=== PATIENT | female | born 1995 | race African-American/Black ===

== ENCOUNTER 2016-07-21 23:25 | Emergency (ER) | payer SELFPAY ==
[~2016-07-21] VITALS: Ht 172.7 cm; Wt 65.0 kg
[~2016-07-21 23:25] MED LIST: VIGA0.5D EACH EYE
[2016-07-21 23:34] VITALS: BP 111/65; PULSE 98; RESP 15; TEMP 98.9; O2SAT 98
--- NOTE | 2016-07-21 23:57 | PD ---
HPI Chief Complaint: Seizure Time Seen by Provider: 23:41 Travel History International Travel<30 days: No Contact w/Intl Traveler<30days: No Traveled to known affect area: No History of Present Illness HPI This is a 21-year-old female who presents to the emergency department having been walking down the [place] when she started to feel lightheaded and dizzy and lost consciousness. She says she hit her head on the ground. She says she woke up but then she felt like her arms and legs were moving involuntarily. She got up to walk and then she passed out again second time. This is never happened to her before. She denies any loss of her bowels or bladder. She had no preceding chest pain or trouble breathing. She's not been sick lately. She says she had a normal menstrual cycle one week ago. She says she ate normally today. PFSH Past Medical History Medical History: Denies Significant Hx Genitourinary: Yes (states treated for chlamydia approx 2 months ago) ?: Not Past Surgical History Surgical History: No Previous Surgery Social History Alcohol Use: Yes (OCC) Tobacco Use: No Substance Use: Yes (marijuana) Allergies-Medications (Allergen,Severity, Reaction): Coded Allergies: Sulfa (Verified Allergy, Unknown, 07/21/16) Reported Meds & Prescriptions Reported Meds & Active Scripts Active No Active Prescriptions or Reported Medications Review of Systems Except as stated in HPI: all other systems reviewed are Neg Physical Exam Narrative GENERAL:Well appearing, no acute distress SKIN: Focused skin assessment warm and dry. HEAD: Atraumatic. Normocephalic. EYES: Pupils equal and round. No injection or drainage. ENT: Moist mucous membranes NECK: Trachea midline. CARDIOVASCULAR: Regular rate and rhythm. No murmur appreciated. RESPIRATORY: Clear to auscultation. Breath sounds equal bilaterally. GASTROINTESTINAL: Abdomen soft, non-tender, nondistended. MUSCULOSKELETAL: No obvious deformities. NEUROLOGICAL: Awake and alert. No obvious cranial nerve deficits. No dysarthria or aphasia. No upper or lower extremity drift. No upper extremity ataxia. Visual adkins intact. PSYCHIATRIC: Appropriate mood and affect; insight and judgment normal. Data Data Last Documented VS Vital Signs Date Time Temp Pulse Resp B/P Pulse Ox O2 Delivery O2 Flow Rate FiO2 07/22/16 00:44 97 20 107/58 100 21 121/62 117 25 129/62 07/22/16 00:21 100 Room Air 07/21/16 23:34 98.9 Orders Electrocardiogram (07/21/16 23:53) Complete Blood Count With Diff (07/21/16 23:53) Comprehensive Metabolic Panel (07/21/16 23:53) Urinalysis - C+S If Indicated (07/21/16 23:53) Ct Brain W/O Iv Contrast(Rout) (07/21/16 23:53) Blood Glucose (07/21/16 23:53) Ecg Monitoring (07/21/16 23:53) Iv Access Insert/Monitor (07/21/16 23:53) Oximetry (07/21/16 23:53) Sodium Chloride 0.9% Flush (Ns Flush) (07/22/16 00:00) Ed Urine Pregnancytest Poc (07/21/16 23:53) Orthostatic Vital Signs (07/21/16 23:54) Sodium Chlor 0.9% 1000 Ml Inj (Ns 1000 M (07/22/16 00:00) Urine Culture (07/22/16 00:13) Labs Laboratory Tests Test 07/22/16 07/22/16 00:00 00:13 White Blood Count 9.0 TH/MM3 Red Blood Count 4.91 MIL/MM3 Hemoglobin 13.5 GM/DL Hematocrit 39.8 % Mean Corpuscular Volume 81.0 FL Mean Corpuscular Hemoglobin 27.6 PG Mean Corpuscular Hemoglobin 34.0 % Concent Red Cell Distribution Width 14.7 % Platelet Count 245 TH/MM3 Mean Platelet Volume 10.6 FL Neutrophils (%) (Auto) 67.3 % Lymphocytes (%) (Auto) 21.9 % Monocytes (%) (Auto) 8.6 % Eosinophils (%) (Auto) 0.7 % Basophils (%) (Auto) 1.5 % Neutrophils # (Auto) 6.1 TH/MM3 Lymphocytes # (Auto) 2.0 TH/MM3 Monocytes # (Auto) 0.8 TH/MM3 Eosinophils # (Auto) 0.1 TH/MM3 Basophils # (Auto) 0.1 TH/MM3 CBC Comment DIFF FINAL Differential Comment Sodium Level 137 MEQ/L Potassium Level 4.5 MEQ/L Chloride Level 101 MEQ/L Carbon Dioxide Level 26.0 MEQ/L Anion Gap 10 MEQ/L Blood Urea Nitrogen 9 MG/DL Creatinine 0.89 MG/DL Estimat Glomerular Filtration 97 ML/MIN Rate Random Glucose 82 MG/DL Calcium Level 8.9 MG/DL Total Bilirubin 0.6 MG/DL Aspartate Amino Transf 30 U/L (AST/SGOT) Alanine Aminotransferase 17 U/L (ALT/SGPT) Alkaline Phosphatase 81 U/L Total Protein 8.9 GM/DL Albumin 4.2 GM/DL Urine Color YELLOW Urine Turbidity HAZY Urine pH 5.5 Urine Specific [place] 1.012 Urine Protein NEG mg/dL Urine Glucose (UA) NEG mg/dL Urine Ketones NEG mg/dL Urine Occult Blood NEG Urine Nitrite POS Urine Bilirubin NEG Urine Urobilinogen LESS THAN 2.0 MG/DL Urine Leukocyte Esterase NEG Urine RBC LESS THAN 1 /hpf Urine WBC 1 /hpf Urine Squamous Epithelial 2 /hpf Cells Urine Bacteria OCC /hpf Urine Hyaline Casts 1 /lpf Urine Granular Casts 7 /lpf Urine Mucus FEW /lpf Microscopic Urinalysis Comment CATH-CULTURE IND MDM Medical Decision Making Medical Screen Exam Complete: Yes Emergency Medical Condition: Yes Interpretation(s) Afebrile, mild tachycardia, normotensive No leukocytosis Electrolytes are reassuring Urinalysis: Doubt infection in the setting of absence of other symptoms CT head: No intracranial hemorrhage EKG: Normal sinus rhythm, left atrial enlargement, complete right bundle-branch block, no ST changes Differential Diagnosis Arrhythmia, electrolyte abnormality, intracranial hemorrhage, seizure, vasovagal syncope Narrative Course This is a 21-year-old female who presents to the emergency department with 2 episodes of syncope. EKG demonstrates an incomplete right bundle branch block but no arrhythmia. Patient is PERC negative so I doubt pulmonary embolism. Labs were obtained which were all reassuring. Urinalysis demonstrates some occasional bacteria but in the absence of any symptoms I don't think this reflects a urinary tract infection and I doubt its related to her the etiology of her symptoms. I think patient can safely be discharged home. I did ask her to follow-up with a graining machine operator in the setting of her slightly abnormal EKG. Diagnosis Primary Impression: Syncope Qualified Code: R55 - Syncope, unspecified syncope type Referrals: [facility] Patient Instructions: General Instructions Additional Instructions: If you develop severe chest pain, shortness of breath, sweating, lightheadedness , dizziness or difficulty breathing return to the emergency department immediately. Follow-up with a graining machine operator in regards to your abnormal EKG. Med/Other Pt SpecificInfo: No Change to Meds Scripts No Active Prescriptions or Reported Meds Disposition: 01 DISCHARGE HOME Condition: Stable Adelina Horta MD July 21, 2016 23:57
[2016-07-22] MEDS ORDERED: SODIUM CHLORIDE 0.9% FLUSH 10 ML FLUSH IVF PRN
[2016-07-22] MEDS ORDERED: SODIUM CHLOR 0.9% 1000 ML INJ 1,000 ML IV ONE
[2016-07-22 00:08] LABS: AUTOMATED NEUTROPHIL # 6.1 TH/MM3 (1.8-7.7); BASOPHIL # 0.1 TH/MM3 (0-0.2); BASOPHIL % 1.5 % (0.0-2.0); EOSINOPHIL # 0.1 TH/MM3 (0-0.4); EOSINOPHIL % 0.7 % (0.0-4.0); HEMATOCRIT 39.8 % (35.0-46.0); HEMO FLAGS DIFF FINAL; LYMPH % 21.9 % (9.0-44.0); MEAN CORPUSCULAR HEMOGLOBIN 27.6 PG (27.0-34.0); MONO % 8.6 % (0.0-8.0); NEUT % 67.3 % (16.0-70.0); PLATELET COUNT 245 TH/MM3 (150-450); RED BLOOD COUNT 4.91 MIL/MM3 (4.00-5.30); RED CELL DISTRIBUTION WIDTH 14.7 % (11.6-17.2)
[2016-07-22 00:21] VITALS: BP 119/60; PULSE 104; RESP 18; O2SAT 100
[2016-07-22 00:22] LABS: BACTERIA, URINE OCC /hpf; BLOOD, URINE NEG (NEG); COMMENT (UR) CATH-CULTURE IND; CULTURE IF INDICATED CATH CULTURE IND; GLUCOSE,URINE NEG (NEG); GRANULAR CAST, URINE 7 /lpf; HYALINE CAST, URINE 1 /lpf (RARE); KETONE, URINE NEG (NEG); MUCUS URINE FEW /lpf (OCC); NITRITE,URINE POS (NEG); PH, URINE 5.5 (5.0-8.5); SQUAMOUS EPITHELIAL CELL URINE 2 /hpf (0-5); URINE COLOR YELLOW (YELLW/STRAW)
[2016-07-22 00:35] VITALS: PULSE 94
[2016-07-22 00:37] LABS: ALKALINE PHOSPHATASE 81 U/L (45-117); TOTAL BILIRUBIN ADULT 0.6 MG/DL (0.2-1.0)
[2016-07-22 00:44] VITALS: BP_SYST 107; BP_SYST 121; BP_SYST 129; BP_DIAS 58; BP_DIAS 62; RESP 20; RESP 21; RESP 25
[2016-07-22 00:52] LABS: ALT (GPT) 17 U/L (10-53); ANION GAP 10 MEQ/L (5-15); AST (GOT) 30 U/L (15-37); BLOOD UREA NITROGEN 9 MG/DL (7-18); CHLORIDE 101 MEQ/L (98-107); GLOMERULAR FILTRATION RATE 97 ML/MIN (>89); SODIUM (NA) 137 MEQ/L (136-145)
[2016-07-22 00:53] LABS: POTASSIUM 4.5 MEQ/L (3.5-5.1)
--- NOTE | 2016-07-22 02:12 | RADRPT ---
EXAM DATE/TIME: 07/22/2016 01:30 [place] COMPARISON: No previous studies available for comparison. INDICATIONS : Seizure. RADIATION DOSE: 45.10 CTDIvol (mGy) MEDICAL HISTORY : None SURGICAL HISTORY : None. ENCOUNTER: Initial ACUITY: 1 day PAIN SCALE: 0/10 LOCATION: cranial TECHNIQUE: Multiple contiguous axial images were obtained of the head. Using automated exposure control and adj ustment of the mA and/or kV according to patient size, radiation dose was kept as low as reasonably a chievable to obtain optimal diagnostic quality images. FINDINGS: CEREBRUM: The ventricles are normal for age. No evidence of midline shift, mass lesion, hemorrhage or acute in farction. No extra-axial fluid collections are seen. POSTERIOR FOSSA: The cerebellum and brainstem are intact. The 4th ventricle is midline. The cerebellopontine angle i s unremarkable. EXTRACRANIAL: The visualized portion of the orbits is intact. SKULL: The calvaria is intact. No evidence of skull fracture. CONCLUSION: Normal examination. Jameson Lancaster MD on July 22, 2016 at 2:10 Board Certified Radiologist. This report was verified electronically.
[2016-07-22 02:52] VITALS: BP 118/74
--- NOTE | 2016-07-22 09:53 | EKG ---
Date Performed: 07/22/2016 Time Performed: 00:29:35 PTAGE: 21 years EKG: Sinus rhythm LEFT ATRIAL ENLARGEMENT INCOMPLETE RIGHT BUNDLE BRANCH BLOCK ABNORMAL ECG NO PREVIOUS TRACING DOCTOR: Dino Hairston Interpretating Date/Time 07/22/2016 09:51:54
== END 2016-07-22 02:53 | disposition home or self-care (01) ==
LOC: NEPE 23:25
DX: R55 Syncope and collapse (principal); R94.31 Abnormal electrocardiogram [ECG] [EKG]; N39.0 Urinary tract infection, site not specified; B96.20 Unspecified Escherichia coli [E. coli] as the cause of diseases classified elsewhere
CPT/HCPCS: 70450; 80053; 81001; 84703; 85025; 87077; 87086; 87186; 93005; 96360; 99284; J7030

== ENCOUNTER 2017-05-27 12:29 | Emergency (ER) | payer SELFPAY ==
[2017-05-27 12:35] VITALS: BP 127/76; PULSE 97; RESP 20; TEMP 99.2; O2SAT 100
[2017-05-27] MEDS ORDERED: CEPH-460 PO (14:57)
--- NOTE | 2017-05-27 14:58 | PD ---
HPI Chief Complaint: Oral / Dental Pain or Problem Time Seen by Provider: 14:47 Travel History International Travel<30 days: No Contact w/Intl Traveler<30days: No Traveled to known affect area: No History of Present Illness HPI 22-year-old female arrives with rash on the right lower lip. It was first noticed yesterday evening and persisted over the course of the night. This morning minimal pain occurred leading to the ER evaluation. No trauma. No similar prior. Patient has history of eczema typically involving the abdominal wall dermis. No additional complaint. PFSH Past Medical History Genitourinary: Yes (states treated for chlamydia approx 2 months ago) ?: Not Social History Alcohol Use: Yes (OCC) Tobacco Use: No Substance Use: Yes (marijuana) Allergies-Medications (Allergen,Severity, Reaction): Coded Allergies: Sulfa (Sulfonamide Antibiotics) (Unverified Allergy, Unknown, 05/27/17) Reported Meds & Prescriptions Reported Meds & Active Scripts Active No Active Prescriptions or Reported Medications Review of Systems General / Constitutional: No: Fever Cardiovascular: No: Palpitations Physical Exam Narrative GENERAL: 22 yo F, WNWD, NAD ENT: Small rash in the right lower lip consistent with a mild very superficial dermatitis or potentially very superficial cellulitis. Herpes considered less likely. SKIN: Warm and dry. No evidence for herpetic lesion elsewhere about the face, eyes or ears. HEAD: Normocephalic. EYES: No scleral icterus. No injection or drainage. NECK: Supple, trachea midline. No JVD or lymphadenopathy. Data Data Last Documented VS Vital Signs Date Time Temp Pulse Resp B/P (MAP) Pulse Ox O2 Delivery O2 Flow Rate FiO2 05/27/17 12:35 99.2 97 20 127/76 (93) 100 MDM Medical Decision Making Medical Screen Exam Complete: Yes Emergency Medical Condition: Yes Medical Record Reviewed: Yes Differential Diagnosis rash, cellulitis, abscess, herpes Narrative Course possible cellulitic process keflex script Diagnosis Primary Impression: Rash and nonspecific skin eruption Referrals: Primary Care Physician 2 days Med/Other Pt SpecificInfo: Prescription(s) given Scripts Cephalexin (Keflex) 500 Mg Cap 500 MG PO Q8H for Infection, #30 CAP 0 Refills Prov: Isra Henning MD 05/27/17 Disposition: 01 DISCHARGE HOME Condition: Stable Isra Henning MD May 27, 2017 14:58
== END 2017-05-27 15:43 | disposition home or self-care (01) ==
LOC: NEPD 12:29
DX: R21 Rash and other nonspecific skin eruption (principal); F12.90 Cannabis use, unspecified, uncomplicated
CPT/HCPCS: 99283